=== PATIENT | male | born 1985 | race Two or more races ===

== ENCOUNTER 2022-07-27 19:55 | Emergency (ER) | payer OTHER ==
[~2022-07-27] VITALS: Ht 172.7 cm; Wt 81.8 kg
[2022-07-28 01:02] VITALS: BP 116/86
== END 2022-07-28 01:07 | disposition home or self-care (01) ==
LOC: ER 19:58
DX: R51.9 Headache, unspecified (principal); E11.9 Type 2 diabetes mellitus without complications
CPT/HCPCS: 70450